=== PATIENT | female | born 1945 ===

== ENCOUNTER 2016-11-25 11:28 | Emergency (ER) | payer MEDICARE, MEDICAID ==
[2016-11-25 11:32] VITALS: BP 141/99; PULSE 79; RESP 20; TEMP 98; O2SAT 97
[2016-11-25] MEDS ORDERED: Sodium Chloride 0.9% 1,000 ML IV ONE ×2 (11:40→13:55)
--- NOTE | 2016-11-25 12:37 | ED PDOC ---
Hyperglycemia/Hypoglycemia Time Seen by Provider: 11/25/16 11:35 Chief Complaint (Nursing): High Blood Sugar History Per: Family History/Exam Limitations: clinical condition (baseline dementia) Current Symptoms Are (Timing): Still Present Severity: Moderate Current Diabetic Medications: Insulin Associated Infectious Symptoms: denies: Cough, Vomiting : The patient does not have any of the infectious symptoms listed except for those marked. Treatment Prior To Provider Evaluation: Accucheck Additional History Per: Patient, Family Additional Complaint(s): Pt c/o elevated blood sugar x 1 day. Called pmd and referred to ED for further evaluation. 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 no other complaints Past Medical History Reviewed: Historical Data, Nursing Documentation, Vital Signs Vital Signs: Last Vital Signs Temp 98.0 F 11/25/16 11:32 Pulse 79 11/25/16 11:32 Resp 20 11/25/16 11:32 BP 141/99 H 11/25/16 11:32 Pulse Ox 97 11/25/16 11:32 - Medical History PMH: Alzheimer's Disease, Dementia, HTN, Seizures (epilepsy) - Family History Family History: States: Unknown Family Hx - Living Arrangements Living Arrangements: With Family - Social History Current smoker - smoking cessation education provided: No - Home Medications Home Medications: Ambulatory Orders Medication Instructions Recorded Acetaminophen [Tylenol Extra 500 mg PO PRN PRN 04/09/16 Strength] Aspirin [Aspirin Chewable] 81 mg PO DAILY 04/09/16 Atorvastatin [Lipitor] 10 mg PO DAILY 04/09/16 Glipizide [Glipizide ER] 2.5 mg PO DAILY 04/09/16 Lacosamide [Vimpat] 50 mg PO Q12H 04/09/16 Lisinopril [Zestril] 2.5 mg PO DAILY 04/09/16 Multivitamin/Iron/Folic Acid 1 each PO DAILY 04/09/16 [Certavite-Antioxidant Tablet] SITagliptin [Januvia] 100 mg PO DAILY 04/09/16 amLODIPine [Norvasc] 2.5 mg PO DAILY 04/09/16 - Allergies Allergies/Adverse Reactions: Allergies Allergy/AdvReac Type Severity Reaction Status Date / Time No Known Allergies Allergy Verified 04/09/16 08:36 Review of Systems Review Of Systems: ROS cannot be obtained secondary to pt's inabilty to answer questions. (baseline dementia) Constitutional: Negative for: Fever, Chills Cardiovascular: Negative for: Chest Pain Respiratory: Negative for: Cough Gastrointestinal: Negative for: Vomiting, Abdominal Pain, Diarrhea Genitourinary Female: Negative for: Dysuria Neurological: Negative for: Weakness, Numbness Physical Exam - Reviewed Nursing Documentation Reviewed: Yes Vital Signs Reviewed: Yes - Physical Exam Appears: Positive for: Well, No Acute Distress Head Exam: Positive for: ATRAUMATIC, NORMAL INSPECTION, NORMOCEPHALIC Eye Exam: Positive for: Normal appearance, EOMI, PERRL ENT: Positive for: Pharynx Is (clear, dry mmm). Negative for: Pharyngeal Erythema, Tonsillar Exudate Neck: Positive for: Normal, Painless ROM, Supple. Negative for: Decreased ROM, Limited ROM, Trachea Midline, Pain On Movement Of Neck Cardiovascular/Chest: Positive for: Regular Rate, Rhythm, Chest Non Tender. Negative for: Edema, Gallop, Murmur, Bradycardia, Tachycardia, Irregularly Irregular Respiratory: Positive for: Normal Breath Sounds. Negative for: Decreased Breath Sounds, Accessory Muscle Use, Crackles, Rales, Rhonchi, Stridor, Wheezing , Respiratory Distress Pulses-Radial (L): 2+ Pulses-Radial (R): 2+ Gastrointestinal/Abdominal: Positive for: Normal Exam, Bowel Sounds, Soft. Negative for: Tenderness Back: Positive for: Normal Inspection. Negative for: L CVA Tenderness, R CVA Tenderness Extremity: Positive for: Normal ROM. Negative for: Tenderness, Pedal Edema, Deformity, Swelling Neurologic/Psych: Positive for: Alert, demand generator manager II-XII, Oriented. Negative for: Motor/Sensory Deficits - Laboratory Results Result Diagrams: 11/25/16 13:16 11/25/16 13:16 - ECG ECG: Positive for: Interpreted By Or ECG Rhythm: Positive for: Normal QRS, Normal ST Segment, Sinus Rhythm (77). Negative for: ST/T Changes O2 Sat by Pulse Oximetry: 97 Pulse Ox Interpretation: Normal - Radiology X-Ray: Interpreted by Or X-Ray Interpretation: No Acute Disease - Progress ED Course And Treament: sx improved with iv fluids discussed with roula lara will d/c home with close f/u. pt and family agree's with plan. Re-evaluation Time: 15:50 Condition: Improved Disposition - Clinical Impression Clinical Impression: Hyperglycemia - Patient ED Disposition Is Patient to be Admitted: No Counseled Patient/Family Regarding: Studies Performed, Diagnosis, Need For Followup, Rx Given - Disposition Referrals: [facility] [place] [Outside] (or follow up with crista lara in 2 days) Disposition: Routine/Home Disposition Time: 16:51 Condition: STABLE Instructions: Diabetic Hyperglycemia (ED) Forms: [employer] (Italian) Print Language: [place] CITIZ[place]
[2016-11-25 13:21] LABS: BASO # 0.1 K/uL (0.0-0.2); BASO % 0.8 % (0.0-2.0); EOS # 0.1 K/uL (0.0-0.7); EOS % 1.5 % (0.0-4.0); HEMOGLOBIN 15.3 g/dL (12.0-16.0); LYMPH # 2.2 K/uL (1.0-4.3); LYMPH % 30.5 % (20.0-40.0); MEAN CELL VOLUME 94.1 fl (81.0-99.0); MEAN CORPUSCULAR HEMOGLOBIN 31.3 pg (27.0-31.0); MEAN CORPUSCULAR HGB CONC 33.3 g/dL (33.0-37.0); MEAN PLATELET VOLUME 10.1 fl (7.2-11.7); MONO # 0.5 K/uL (0.0-0.8); MONO % 6.5 % (0.0-10.0); NEUT # 4.4 K/uL (1.8-7.0); NEUT % 60.7 % (50.0-75.0); RBC 4.88 Mil/uL (3.80-5.20); RED CELL DISTRIBUTION WIDTH 13.2 % (11.5-14.5); WHITE BLOOD COUNT 7.2 K/uL (4.8-10.8)
--- NOTE | 2016-11-25 13:28 | RAD ---
HISTORY: hyperglycemia COMPARISON: 04/09/2016. FINDINGS: LUNGS: No active pulmonary disease. PLEURA: No significant pleural effusion identified, no pneumothorax apparent. CARDIOVASCULAR: No radiographic findings to suggest acute or significant cardiovascular disease. OSSEOUS STRUCTURES: No significant abnormalities. VISUALIZED UPPER ABDOMEN: Normal. OTHER FINDINGS: None. IMPRESSION: No active disease. No significant interval change compared to the prior examination(s). Concordant results with the preliminary interpretation rendered by the emergency department physician procedure.
[2016-11-25 13:40] LABS: ALB/GLOB RATIO 1.4 (1.0-2.1); ALBUMIN 4.4 g/dL (3.5-5.0); ALT/SGPT 144 U/L (9-52); AST/SGOT 79 U/L (14-36); BLOOD UREA NITROGEN 16 mg/dl (7-17); CALCIUM 9.9 mg/dL (8.4-10.2); GFR AFRICAN-AMERICAN > 60; GFR NON-AFRICAN AMERICAN > 60; MAGNESIUM 1.9 MG/DL (1.6-2.3)
--- NOTE | 2016-11-25 14:51 | CT ---
PROCEDURE: CT HEAD WITHOUT CONTRAST. HISTORY: Headache, possible hyperglycemia. COMPARISON: None available. TECHNIQUE: Axial computed tomography images were obtained through the head/brain without intravenous contrast. Coronal and sagittal reconstructed images. Radiation dose: Total exam DLP = 93.76 mGy-cm. This CT exam was performed using one or more of the following dose reduction techniques: Automated exposure control, adjustment of the mA and/or kV according to patient size, and/or use of iterative reconstruction technique. FINDINGS: HEMORRHAGE: No intracranial hemorrhage. BRAIN: No mass effect or edema. Cortical atrophy, periventricular small vessel disease VENTRICLES: Mild ventricular dilatation. No obstructing lesions identified. CALVARIUM: Unremarkable. PARANASAL SINUSES: Acute right maxillary sinusitis. MASTOID AIR CELLS: Unremarkable as visualized. No inflammatory changes. OTHER FINDINGS: None. IMPRESSION: No acute intracranial abnormalities. No significant findings to account for the clinical presentation. Additional benign and/or incidental findings described above.
== END 2016-11-25 16:58 | disposition home or self-care (01) ==
LOC: H.ER 11:28
DX: R73.9 Hyperglycemia, unspecified (principal); G30.9 Alzheimer's disease, unspecified; F02.80 Dementia in other diseases classified elsewhere, unspecified severity, without behavioral disturbance, psychotic disturbance, mood disturbance, and anxiety; G40.909 Epilepsy, unspecified, not intractable, without status epilepticus; I10 Essential (primary) hypertension; Z79.82 Long term (current) use of aspirin
CPT/HCPCS: 70450; 71010; 80053; 82550; 82948; 83735; 83930; 84100; 84484; 85025; 99284; J7040